=== PATIENT | male | born 1995 | race Caucasian/White ===

== ENCOUNTER 2017-01-28 16:05 | Emergency (ER) | payer BC, OTHER ==
[~2017-01-28] VITALS: Ht 172.7 cm; Wt 72.6 kg
[2017-01-28 16:06] VITALS: BP_SYST 106
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
[2017-01-28 16:23] VITALS: BP_SYST 134
[2017-01-28] MEDS ORDERED: LIDOCAINE 4% TOPICAL 50 ML BOTTLE MM ONE (16:30)
[2017-01-28] MEDS ORDERED: DIPH-TET-PERTUS Vaccine 0.5 ML VIAL (ADACEL) I.M. ONE (16:30)
[2017-01-28] MEDS ORDERED: BACITRACIN 1 GM OINT TP ONE (16:30)
--- NOTE | 2017-01-28 16:31 | NUR ---
Patient to ER bed 1 to gown for evaluation. Side rails up. Report given to Feliz ARSHAD.
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
--- NOTE | 2017-01-28 16:38 | NUR ---
Kitty MAHONEYP at bedside for exam.
[2017-01-28] MEDS ORDERED: HYDROcodone/ACETAMIN 7.5-325 MG TAB PO ONE (16:45)
--- NOTE | 2017-01-28 17:45 | NUR ---
GEOVANY wrap applied to right hip.
--- NOTE | 2017-01-28 17:52 | NUR ---
Patient given written and verbal discharge instructions and verbalizes understanding. ER MD discussed with patient the results and treatment provided. Patient in stable condition. ID arm band removed. Rx of Bacitracin, Motrin given. Patient educated on pain management and to follow up with PMD. Pain Scale 2/10. Opportunity for questions provided and answered. Patient advised not to drink ETOH, drive or make any major life decisions tonight after taking [place].
[2017-01-28 17:54] VITALS: BP_SYST 122
== END 2017-01-28 17:54 | disposition home or self-care (01) ==
LOC: SED 16:05
DX: S70.01XA Contusion of right hip, initial encounter (principal); S80.211A Abrasion, right knee, initial encounter; S80.212A Abrasion, left knee, initial encounter; S50.811A Abrasion of right forearm, initial encounter; S60.511A Abrasion of right hand, initial encounter; S60.512A Abrasion of left hand, initial encounter; F17.210 Nicotine dependence, cigarettes, uncomplicated; Z71.6 Tobacco abuse counseling; V87.8XXA Person injured in other specified noncollision transport accidents involving motor vehicle (traffic), initial encounter; Y93.55 Activity, bike riding; Y92.89 Other specified places as the place of occurrence of the external cause; Y99.8 Other external cause status
CPT/HCPCS: 73502; 90715; 99284